=== PATIENT | female | born 1970 | race Caucasian/White ===

== ENCOUNTER → 2017-09-05 | Outpatient (CLI) | payer BC ==
[~2017-09-05] MED LIST: CETI10TA84 PO
[2017-09-05 17:52] LABS: BLOOD UREA NITROGEN 16 mg/dl (7-18); BUN/CREATININE RATIO 18.8 (10-20); CALCIUM 9.5 mg/dl (8.5-10.1); CARBON DIOXIDE 32 mmol/L (21-32); CHLORIDE 103 mmol/L (98-107); CREATININE 0.86 mg/dl (0.60-1.20); GLUCOSE 107 mg/dl (70-99); POTASSIUM 3.9 mmol/L (3.5-5.1); SODIUM 139 mmol/L (136-145)
[2017-09-06 07:40] LABS: ESTIMATED AVERAGE GLUCOSE 105 mg/dl; HA1C FLAG Normal (Normal)
== END | disposition home or self-care (01) ==
LOC: C.LABPVFM 14:29
PROVIDERS: ATTEND Nurse Practitioner
DX: R42 Dizziness and giddiness (principal); I10 Essential (primary) hypertension

== ENCOUNTER → 2018-01-23 | Outpatient (CLI) | payer OTHER ==
--- NOTE | 2018-01-23 13:23 | DIAGNOSTIC IMAGING REPORT ---
R WRIST MIN 3 VIEWS ROUTINE CLINICAL HISTORY: Right wrist pain status post trauma COMPARISON: None. DISCUSSION: No fractures or dislocations are visualized. IMPRESSION: No fractures identified. Electronically signed by: Mina Sexton M.D. 01/23/2018 1:21 PM Dictated Date/Time: 01/23/2018 1:21 PM
== END | disposition home or self-care (01) ==
LOC: C.RADPV 13:08
PROVIDERS: ATTEND Family Medicine
DX: S63.509A Unspecified sprain of unspecified wrist, initial encounter (principal); X58.XXXA Exposure to other specified factors, initial encounter

== ENCOUNTER 2020-02-08 10:23 | Inpatient (IN) ==
[2020-02-08] MEDS ORDERED: MoRPHine SULFATE 4 MG/ML 1 ML CARP\\VIAL IV STA ×2 (11:28→13:31)
[2020-02-08] MEDS ORDERED: ONDANSETRON INJ 2 MG/ML 2 ML VIAL IV STA ×2 (11:28→13:31)
--- NOTE | 2020-02-08 11:35 | Emergency Department Note ---
History of Present Illness General Chief complaint: Abdominal Pain Stated complaint: abd pain, chest pain, gi assessment Time Seen by Provider: 02/08/20 11:16 Source: patient Mode of arrival: ambulatory Limitations: no limitations History of Present Illness Provider complaint: Abdominal pain Onset (ago): week(s) Location: abdomen Radiation: back and other (Chest) Severity: severe Maximum Pain Intensity: 10 Quality: + other (Cramping) Exacerbated By: + eating (30) Associated symptoms: no cough, no fever/chills, no nausea/vomiting and no shortness of breath This is a 49-year-old female who presents abdominal pain. The pain started last week. She had it for 2 days. It went away and then came back 2 days ago. She states that it feels like a cramping pain in the central upper abdomen radiating into her back as well as her chest. It is worse after she eats, particularly turkey. No diarrhea, black or bloody stools, urinary symptoms, shortness of breath, cough or cold symptoms, fever, loss of taste or smell, or known exposure to COVID-19. She rates it a 10 out of 10 in severity. It is worse today even though she did not eat turkey. She also states that she did not take her blood pressure medicines this morning. She denies any leg swelling or pain. Home Medications Home Medications Medication Instructions Recorded Confirmed Type multivitamin 1 tab PO QAM 04/08/19 02/08/20 History cetirizine 10 mg PO QAM 09/11/19 02/08/20 History losartan 50 mg tablet 50 mg PO QAM #30 tab 12/03/19 02/08/20 Rx Allergies Allergy/AdvReac Type Severity Reaction Status Date / Time lisinopril Allergy Mild cough Verified 02/08/20 11:55 Past Med/Surg History Medical History (Updated 02/08/20 @ 15:08 by Vijay Webster MD) Allergic rhinitis (Chronic) Cholecystitis with cholelithiasis (Acute) Choledocholithiasis Hypertension Migraine Surgical History History of bilateral tubal ligation History of section x2 History of dilatation and curettage History of tooth extraction History of wisdom tooth extraction Social History (Updated 05/25/19 @ 07:49 by NEYDA Koenig) Preferred Language: Kazakh Communication Ability: Effective Svp Operations Required: No Beliefs That Will Affect Care: None marital status: Current Living Situation: Spouse current occupational status: previously employed Other Information That Helps Us Care for You: No Feels Safe at Home: Yes Safety Concerns: Feels Safe At This Time Smoking Status: Never smoker Do You Dip or Chew Tobacco: No ; Second Hand Exposure: No ; Tobacco Cessation Education Requested by Patient: No Hx Alcohol Use: No Hx Substance Use: No during the past year weight has: remained stable Dental Care, Regularly: Yes Seatbelt Use: always Sunscreen Use: Yes Review of Systems See HPI for pertinent positives & negatives. and A total of 10 systems reviewed and were otherwise negative Physical Exam Vital Signs Vital Signs - 24 hr 02/08/20 10:34 02/08/20 12:30 02/08/20 13:23 Temperature 36.8 C Temperature Source Oral Pulse Rate 102 H Pulse Rate [Right Finger] 98 H 100 H Pulse Rhythm [Right Finger] Regular Pulse Strength [Right Finger] Normal Respiratory Rate 20 18 18 Respiratory Effort / Characteristics Non-Labored Non-Labored Spontaneous Non-Labored Spontaneous Respiratory Depth Normal Normal Normal Respiratory Pattern Regular Regular Blood Pressure 167/98 H Blood Pressure [Left Arm] 136/84 138/97 Blood Pressure Mean 121 Blood Pressure Mean [Left Arm] 101 110 Blood Pressure Position [Left Arm] Lying Sitting Pulse Oximetry 98 96 97 Oxygen Delivery Method Room Air Room Air Room Air Sepsis Recent Fever Within 48 Hours No Sepsis Action Taken by Nursing No Action Required 02/08/20 13:53 Temperature Temperature Source Pulse Rate Pulse Rate [Right Finger] 99 H Pulse Rhythm [Right Finger] Pulse Strength [Right Finger] Respiratory Rate 18 Respiratory Effort / Characteristics Non-Labored Spontaneous Respiratory Depth Normal Respiratory Pattern Regular Blood Pressure Blood Pressure [Left Arm] 154/87 H Blood Pressure Mean Blood Pressure Mean [Left Arm] 109 Blood Pressure Position [Left Arm] Lying Pulse Oximetry 98 Oxygen Delivery Method Room Air Sepsis Recent Fever Within 48 Hours Sepsis Action Taken by Nursing Constitutional: Vital signs reviewed. Eyes: Pupils are equal round reactive to light. Conjunctiva are noninjected. ENT: Pharynx is clear without erythema or exudate. Mucous membranes are moist. Neck supple without meningeal signs. Respiratory: Clear to auscultation bilaterally. Breath sounds are equal bilaterally. Cardiovascular: Regular rate and rhythm. No rubs or gallops. GI: Soft, nondistended with epigastric and right upper quadrant tenderness. No Rome sign. Bowel sounds are present. Musculoskeletal: No peripheral edema. No lower extremity tenderness. Integumentary: No cyanosis. or jaundice. Neurological: The patient is awake and alert. No focal deficits. Psychiatric: Normal affect. Not anxious appearing. Course Administered Medications Discontinued Medications Morphine Sulfate (Morphine Sulfate) 4 mg IV NOW STA Stop: 02/08/20 11:29 Last Admin: 02/08/20 11:40 Dose: 4 mg Documented by: [id number] Morphine Sulfate (Morphine Sulfate) 4 mg IV NOW STA Stop: 02/08/20 13:32 Last Admin: 02/08/20 13:50 Dose: 4 mg Documented by: [id number] Ondansetron HCl (Zofran) 4 mg IV NOW STA Stop: 02/08/20 11:29 Last Admin: 02/08/20 11:40 Dose: 4 mg Documented by: [id number] Ondansetron HCl (Zofran) 4 mg IV NOW STA Stop: 02/08/20 13:32 Last Admin: 02/08/20 13:50 Dose: 4 mg Documented by: [id number] Medical Decision Making Differential Diagnosis Cholelithiasis, cholecystitis, pancreatitis, peptic ulcer disease, colitis, pneumonia, [place] Medical Records Attestation: I reviewed the patient's medical records. I did perform a limited focused review of portions of the patient's old chart on the electronic medical record. The patient has had no recent pertinent visits to this hospital. Home Medications Current Medication List: was personally reviewed by me Laboratory Data Attestation: I reviewed the patient's lab results. Result diagrams: 02/08/20 11:26 02/08/20 11:26 Lab Results 02/08/20 02/08/20 02/08/20 Range/Units 11:26 11:26 11:26 WBC 13.75 H (4.8-10.8) K/uL RBC 4.71 (4.2-5.4) M/uL Hgb 14.4 (12.0-16.0) g/dL Hct 40.7 (37-47) % MCV 86.4 (80-100) fL MCH 30.6 (25-34) pg MCHC 35.4 (32-36) g/dL RDW Std Deviation 41.2 (36.4-46.3) fL RDW Coeff of Topher 12.8 (11.5-14.5) % Plt Count 221 (130-400) K/uL MPV 10.8 H (7.4-10.4) fL Immature Gran % (Auto) 0.3 % Neut % (Auto) 84.3 % Lymph % (Auto) 10.5 % Cooke % (Auto) 4.7 % Eos % (Auto) 0.1 % Baso % (Auto) 0.1 % Immature Gran # (Auto) 0.04 H (0.00-0.02) K/uL Neut # (Auto) 11.59 H (1.4-6.5) K/uL Lymph # (Auto) 1.44 (1.2-3.4) K/uL Cooke # (Auto) 0.64 H (0.11-0.59) K/uL Eos # (Auto) 0.02 (0-0.5) K/uL Baso # (Auto) 0.02 (0-0.2) K/uL PT 10.7 (9.0-12.0) Seconds INR 1.0 (0.9-1.1) APTT 29.5 (21.0-31.0) Seconds PTT Ratio 1.1 Sodium 137 (136-145) mmol/L Potassium 3.4 L (3.5-5.1) mmol/L Chloride 106 (98-107) mmol/L Carbon Dioxide 23 (21-32) mmol/L Anion Gap 8.0 (3-11) BUN 19 H (7-18) mg/dl Creatinine 0.76 (0.6-1.2) mg/dl Est Cr Clr Drug Dosing 95.1 ml/min Est GFR ( Amer) 105.3 Est GFR (Non-Af Amer) 90.8 BUN/Creatinine Ratio 25.7 H (10-20) Glucose 133 H (70-99) mg/dl Calcium 9.4 (8.5-10.1) mg/dl Total Bilirubin 0.3 (0.2-1) mg/dl AST 10 L (15-37) U/L ALT 27 (12-78) U/L Alkaline Phosphatase 75 (45-117) U/L Troponin I < 0.015 (0-0.045) ng/ml Total Protein 8.4 H (6.4-8.2) gm/dl Albumin 4.4 (3.4-5.0) gm/dl Globulin 4.0 (2.5-4.0) gm/dl Albumin/Globulin Ratio 1.1 (0.9-2) Lipase 104 (73-393) U/L Urine Color Urine Appearance (Clear) Urine pH (4.5-7.5) Ur Specific [place] (1.000-1.030) Urine Protein (Negative) Urine Glucose (UA) (Negative) Urine Ketones (Negative) Urine Blood (Negative) Urine Nitrite (Negative) Urine Bilirubin (Negative) Urine Urobilinogen (Negative) Ur Leukocyte Esterase (Negative) Urine WBC (Auto) (0-5) /hpf Urine RBC (Auto) (0-4) /hpf U Hyaline Cast (Auto) (0-5) /lpf U Epithel Cells (Auto) (0-5) /lpf Urine Bacteria (Auto) (Negative) POC Ur Test (NEG) 02/08/20 02/08/20 Range/Units 11:45 11:50 WBC (4.8-10.8) K/uL RBC (4.2-5.4) M/uL Hgb (12.0-16.0) g/dL Hct (37-47) % MCV (80-100) fL MCH (25-34) pg MCHC (32-36) g/dL RDW Std Deviation (36.4-46.3) fL RDW Coeff of Topher (11.5-14.5) % Plt Count (130-400) K/uL MPV (7.4-10.4) fL Immature Gran % (Auto) % Neut % (Auto) % Lymph % (Auto) % [place] % (Auto) % Eos % (Auto) % Baso % (Auto) % Immature Gran # (Auto) (0.00-0.02) K/uL Neut # (Auto) (1.4-6.5) K/uL Lymph # (Auto) (1.2-3.4) K/uL [place] # (Auto) (0.11-0.59) K/uL Eos # (Auto) (0-0.5) K/uL Baso # (Auto) (0-0.2) K/uL PT (9.0-12.0) Seconds INR (0.9-1.1) APTT (21.0-31.0) Seconds PTT Ratio Sodium (136-145) mmol/L Potassium (3.5-5.1) mmol/L Chloride (98-107) mmol/L Carbon Dioxide (21-32) mmol/L Anion Gap (3-11) BUN (7-18) mg/dl Creatinine (0.6-1.2) mg/dl Est Cr Clr Drug Dosing ml/min Est GFR ( Amer) Est GFR (Non-Af Amer) BUN/Creatinine Ratio (10-20) Glucose (70-99) mg/dl Calcium (8.5-10.1) mg/dl Total Bilirubin (0.2-1) mg/dl AST (15-37) U/L ALT (12-78) U/L Alkaline Phosphatase (45-117) U/L Troponin I (0-0.045) ng/ml Total Protein (6.4-8.2) gm/dl Albumin (3.4-5.0) gm/dl Globulin (2.5-4.0) gm/dl Albumin/Globulin Ratio (0.9-2) Lipase (73-393) U/L Urine Color Yellow Urine Appearance Turbid A (Clear) Urine pH 5.0 (4.5-7.5) Ur Specific [place] 1.032 H (1.000-1.030) Urine Protein Negative (Negative) Urine Glucose (UA) Negative (Negative) Urine Ketones Trace H (Negative) Urine Blood Trace H (Negative) Urine Nitrite Negative (Negative) Urine Bilirubin Negative (Negative) Urine Urobilinogen Negative (Negative) Ur Leukocyte Esterase Negative (Negative) Urine WBC (Auto) 1-5 (0-5) /hpf Urine RBC (Auto) 0-4 (0-4) /hpf U Hyaline Cast (Auto) 1-5 (0-5) /lpf U Epithel Cells (Auto) 20-30 H (0-5) /lpf Urine Bacteria (Auto) Negative (Negative) POC Ur Test NEG (NEG) Imaging Data Radiologist's Impression: US gallbladder CLINICAL HISTORY: 49 years-old Female presenting with ruq pain eval for stones. TECHNIQUE: Real-time grayscale and limited color Doppler ultrasound imaging of the abdomen limited to the right upper quadrant was performed. COMPARISON: Plain radiograph from 09/24/2019. FINDINGS: Pancreas: Visualized portions of the pancreatic head and body normal. Liver: Moderately hyperechogenic parenchyma with partial obscuration of the right hemidiaphragm, likely indicating moderate steatosis. The liver measures 19.2 cm in maximal sagittal dimension. No sonographic evidence of hepatic mass. Main portal vein patent with normal directional flow. Biliary: No intrahepatic biliary ductal dilatation. Common bile duct measures up to 12 mm in diameter. Gallbladder: Gallstones and gallbladder sludge in the significantly distended gallbladder lumen. Gallbladder wall thickening and pericholecystic fluid eviden t. An impacted gallstone is noted at the gallbladder neck measuring 2 cm. Sonographic Rome's sign positive. Right kidney: Normal in appearance without evidence of hydronephrosis. Ascites: None. Other: None. IMPRESSION: 1. Findings highly suspicious for acute calculus cholecystitis. Surgical consultation is warranted. 2. Extrahepatic biliary ductal dilatation raises concern for choledocho lithiasis. 3. Moderate hepatic steatosis. The report will be called/faxed according to standard departmental protocol. ACT 112: Negative or not required by law. Electronically signed by: Dixon Sexton M.D. 02/08/2020 12:28 PM XR chest 1V portable CLINICAL HISTORY: eval for infiltrate COMPARISON STUDY: Chest radiograph September 24, 2019. FINDINGS: Lung volumes are normal. Lungs are clear. There is no pneumothorax or pleural effusion. Cardiac size is normal. Mediastinal contours are normal. There is no evidence for pulmonary edema. IMPRESSION: No acute cardiopulmonary findings. ACT 112: Negative or not required by law. Electronically signed by: Fadi Sales M.D. 02/08/2020 11:52 AM ECG Data Attestation: I personally reviewed and interpreted this ECG as follows: Indication: + abdominal pain Rate (beats per minute): 101 Rhythm: + sinus tachycardia ECG Intervals/blocks: + First degree AV block ECG ST segments: no ST elevation ECG Findings: no PVCs Blood Pressure Blood Pressure Findings: Elevated blood pressure Blood Pressure Disposition: Referred to patients primary care provider CHRISTOFER Narrative I did evaluate the patient as noted above. The patient is presenting with abdominal pain rating into her chest and back. On exam she is tender in the right upper quadrant and epigastric region. She states the pain is worse with eating turkey. She does still have her gallbladder. IV access was established. I did treat her with IV morphine and Zofran. The patient was placed on a continuous monitoring coordinator. I did order and personally review the patient's 12- lead EKG as described above. She has no acute ischemic changes. I did order and personally reviewed the images of the patient's chest x-ray as described above. I did order a urine analysis. I did order and review the patient's blood work as noted in the electronic medical record. Her white blood cell count is elevated but she has unremarkable LFTs and lipase. I did order an ultrasound of the right upper quadrant. I did review the images myself as well as the radiology report as described above. She has signs of acute cholecystitis. Bile duct is dilated as well. I did reassess the patient. She is still having significant pain and she was given additional IV morphine and Zofran. I did discuss the test results with her. I did discuss the case with the surgeon on-call Dr. Malone who did hospitalize the patient. Impression & Plan Cholecystitis with cholelithiasis Discharge Plan Visit Data Chief Complaint: Abdominal Pain Stated Complaint: abd pain, chest pain, gi assessment ED Provider: Vijay Webster Discharge Problem: Cholecystitis with cholelithiasis Patient Disposition: Being Evaluated by Surgeon Condition: Good Forms Stand Alone Forms: [facility] [employer] Prescriptions Prescriptions: No Action losartan 50 mg tablet 50 mg PO QAM Qty: 30 RF: 5 multivitamin [Multiple Vitamins] tablet 1 tab PO QAM RF: 0 cetirizine 10 mg tablet 10 mg PO QAM RF: 0 Referrals Referrals: Lisa Rankin CRNP [Primary Care Provider] - Discharge Problem: Cholecystitis with cholelithiasis Qualifiers: Cholelithiasis location: gallbladder Cholecystitis acuity: acute Biliary obstruction: without biliary obstruction Qualified Code(s): K80.00 - Calculus of gallbladder with acute cholecystitis without obstruction
[2020-02-08 11:36] LABS: Basophils # (auto) 0.02 K/uL (0-0.2); Basophils % (auto) 0.1 %; Eosinophils # (auto) 0.02 K/uL (0-0.5); Eosinophils % (auto) 0.1 %; Hematocrit (blood only) 40.7 % (37-47); Hemoglobin 14.4 g/dL (12.0-16.0); Immature Granulocytes # (auto) 0.04 K/uL (0.00-0.02); Immature Granulocytes % (auto) 0.3 %; Lymphocytes # (auto) 1.44 K/uL (1.2-3.4); Lymphocytes % (auto) 10.5 %; Mean Corpuscular Hemoglobin 30.6 pg (25-34); Mean Corpuscular Hgb Conc 35.4 g/dL (32-36); Mean Corpuscular Volume 86.4 fL (80-100); Mean Platelet Volume 10.8 fL (7.4-10.4); Monocytes # (auto) 0.64 K/uL (0.11-0.59); Monocytes % (auto) 4.7 %; Neutrophils # (auto) 11.59 K/uL (1.4-6.5); Neutrophils % (auto) 84.3 %; Platelet Count 221 K/uL (130-400); RDW Coefficient of Variation 12.8 % (11.5-14.5); RDW Standard Deviation 41.2 fL (36.4-46.3); Red Blood Count 4.71 M/uL (4.2-5.4); White Blood Count 13.75 K/uL (4.8-10.8)
[2020-02-08 11:52] LABS: Alanine Aminotransferase 27 U/L (12-78); Albumin Level 4.4 gm/dl (3.4-5.0); Aspartate Aminotransferase 10 U/L (15-37); BUN Creatinine Ratio 25.7 (10-20); Blood Urea Nitrogen 19 mg/dl (7-18); Calcium 9.4 mg/dl (8.5-10.1); Carbon Dioxide 23 mmol/L (21-32); Chloride 106 mmol/L (98-107); Creatinine Clr Calc Pharmacy 95.1 ml/min; Est GFR (African American) 105.3; Est GFR (Non-African American) 90.8; Glucose 133 mg/dl (70-99); Lipase 104 U/L (73-393); Potassium 3.4 mmol/L (3.5-5.1); Sodium 137 mmol/L (136-145)
--- NOTE | 2020-02-08 11:53 | XRay Report ---
XR chest 1V portable CLINICAL HISTORY: eval for infiltrate COMPARISON STUDY: Chest radiograph September 24, 2019. FINDINGS: Lung volumes are normal. Lungs are clear. There is no pneumothorax or pleural effusion. Car diac size is normal. Mediastinal contours are normal. There is no evidence for pulmonary edema. IMPRESSION: No acute cardiopulmonary findings. ACT 112: Negative or not required by law. Electronically signed by: Fadi Sales M.D. 02/08/2020 11:52 AM
[2020-02-08 11:57] LABS: Albumin Globulin Ratio 1.1 (0.9-2); Alkaline Phosphatase 75 U/L (45-117); Bilirubin,Total 0.3 mg/dl (0.2-1); Total Protein 8.4 gm/dl (6.4-8.2); Troponin I < 0.015 ng/ml (0-0.045)
[2020-02-08 12:04] LABS: Appearance Urine Turbid (Clear); Bacteria Urine Automated Negative (Negative); Bilirubin Urine Negative (Negative); Blood Urine Trace (Negative); Color Urine Yellow; Epithelial Cell Urine Auto 20-30 /lpf (0-5); Glucose Urine UA Negative (Negative); Ketones Urine Trace (Negative); Leukocyte Esterase Urine Negative (Negative); Nitrite Urine Negative (Negative); Protein Urine Negative (Negative); RBC Urine Automated 0-4 /hpf (0-4); Specific Gravity Urine 1.032 (1.000-1.030); Urobilinogen Urine Negative (Negative)
--- NOTE | 2020-02-08 12:29 | Ultrasound Report ---
US gallbladder CLINICAL HISTORY: 49 years-old Female presenting with ruq pain eval for stones. TECHNIQUE: Real-time grayscale and limited color Doppler ultrasound imaging of the abdomen limited to the right upper quadrant was performed. COMPARISON: Plain radiograph from 09/24/2019. FINDINGS: Pancreas: Visualized portions of the pancreatic head and body normal. Liver: Moderately hyperechogenic parenchyma with partial obscuration of the right hemidiaphragm, like ly indicating moderate steatosis. The liver measures 19.2 cm in maximal sagittal dimension. No sonogr aphic evidence of hepatic mass. Main portal vein patent with normal directional flow. Biliary: No intrahepatic biliary ductal dilatation. Common bile duct measures up to 12 mm in diameter . Gallbladder: Gallstones and gallbladder sludge in the significantly distended gallbladder lumen. Gall bladder wall thickening and pericholecystic fluid evident. An impacted gallstone is noted at the gall bladder neck measuring 2 cm. Sonographic Rome's sign positive. Right kidney: Normal in appearance without evidence of hydronephrosis. Ascites: None. Other: None. IMPRESSION: 1. Findings highly suspicious for acute calculus cholecystitis. Surgical consultation is warranted. 2. Extrahepatic biliary ductal dilatation raises concern for choledocholithiasis. 3. Moderate hepatic steatosis. The report will be called/faxed according to standard departmental protocol. ACT 112: Negative or not required by law. Electronically signed by: Dixon Sexton M.D. 02/08/2020 12:28 PM
[2020-02-08 12:55] LABS: Partial Thromboplastin Ratio 1.1; Partial Thromboplastin Time 29.5 Seconds (21.0-31.0); Prothrombin Time 10.7 Seconds (9.0-12.0)
--- NOTE | 2020-02-08 13:29 | History & Physical Report ---
Date of Service February 08, 2020 Assessment & Plan (1) Hypertension: con't home meds Present on Admission?: Yes (2) Cholecystitis with cholelithiasis: IVF IV abx to OR for lap lnyn possible IOC in AM Present on Admission?: Yes (3) Choledocholithiasis: Possible IOC; GI consult and ERCP if CBD stone. History of Present Illness Primary Care Provider: NEYDA Koenig This is a 49-year-old female who presented to ED with abdominal pain. She had the pain last week but it resolved. This pain started 2 days ago that she describes as crampy in the right upper abdomen radiating into her back as well as her chest. It is worse after she eats but no diarrhea, black or bloody stools, urinary symptoms, shortness of breath, cough or cold symptoms, fever, loss of taste or smell, or known exposure to COVID-19. She hasa some nausea but no vomiting. She also states that she did not take her blood pressure medicines this morning. She had a light breakfast this AM. Allergies Allergy/AdvReac Type Severity Reaction Status Date / Time lisinopril Allergy Mild cough Verified 02/08/20 11:55 Home Medications Home Medications Medication Instructions Recorded Confirmed Type multivitamin 1 tab PO QAM 04/08/19 02/08/20 History cetirizine 10 mg PO QAM 09/11/19 02/08/20 History losartan 50 mg tablet 50 mg PO QAM #30 tab 12/03/19 02/08/20 Rx Past Med/Surg History Social History (Updated 05/25/19 @ 07:49 by NEYDA Koenig) Preferred Language: Bengali Communication Ability: Effective Fire Systems Inspector Required: No Beliefs That Will Affect Care: None marital status: Current Living Situation: Spouse current occupational status: previously employed Feels Safe at Home: Yes Smoking Status: Never smoker Second Hand Exposure: No ; Hx Alcohol Use: No Hx Substance Use: No during the past year weight has: remained stable Dental Care, Regularly: Yes Seatbelt Use: always Sunscreen Use: Yes Review of Systems Constitutional: + fatigue and + anorexia; no fever and no chills Eyes: no problem reported Ear, Nose, Mouth, Throat: no problem reported Respiratory: no cough, no chest congestion and no dyspnea Cardiovascular: + chest pain; no chest pain with activity Gastrointestinal: + abdominal pain, + nausea and + cramping; no vomiting and no diarrhea/loose stools Genitourinary: no dysuria Musculoskeletal: + back pain; no neck pain and no joint pain Integumentary: no rash Neurologic: no problem reported Psychiatric: no problem reported Endocrine: + fatigue; no polydipsia and no polyphagia Hematologic / Lymphatic: no easy bleeding Allergy / Immunological: no problem reported Physical Exam Constitutional: well developed and well nourished; no acute distress Eyes: PERRL, conjunctivae normal, anicteric sclerae Neck: trachea midline Respiratory: normal respiratory effort, lungs clear to auscultation Cardiovascular: RRR, no murmur, no edema Gastrointestinal (Abdomen): Inspection/Auscultation: abdomen normal to inspection and normal bowel sounds; abdomen not distended Percussion/Palpation: + abdomen tender and abdomen soft; no guarding and abdomen not rigid Musculoskeletal: Head/Neck/Chest: normocephalic and head atraumatic Skin: no rashes, warm and dry Psychiatric: Orientation: alert and oriented x 3 Lymphatic: no lymphadenopathy Results & Data Results & Data ([facility]) Vital Signs (Past 12 Hours) Vital Signs Temp Pulse Pulse Resp BP BP Pulse Ox 02/08/20 12:30 98 H 18 136/84 96 02/08/20 10:34 36.8 C 102 H 20 167/98 H 98 Diagnostic Findings US gallbladder CLINICAL HISTORY: 49 years-old Female presenting with ruq pain eval for stones. TECHNIQUE: Real-time grayscale and limited color Doppler ultrasound imaging of the abdomen limited to the right upper quadrant was performed. COMPARISON: Plain radiograph from 09/24/2019. FINDINGS: Pancreas: Visualized portions of the pancreatic head and body normal. Liver: Moderately hyperechogenic parenchyma with partial obscuration of the right hemidiaphragm, likely indicating moderate steatosis. The liver measures 19.2 cm in maximal sagittal dimension. No sonographic evidence of hepatic mass. Main portal vein patent with normal directional flow. Biliary: No intrahepatic biliary ductal dilatation. Common bile duct measures up to 12 mm in diameter. Gallbladder: Gallstones and gallbladder sludge in the significantly distended gallbladder lumen. Gallbladder wall thickening and pericholecystic fluid evident. An impacted gallstone is noted at the gallbladder neck measuring 2 cm. Sonographic Rome's sign positive. Right kidney: Normal in appearance without evidence of hydronephrosis. Ascites: None. Other: None. IMPRESSION: 1. Findings highly suspicious for acute calculus cholecystitis. Surgical consultation is warranted. 2. Extrahepatic biliary ductal dilatation raises concern for choledocholithiasis. 3. Moderate hepatic steatosis. Code Status & VTE Plan Code Status Full Code VTE Prophylaxis Plan VTE Prophylaxis will be ordered: Yes
[2020-02-08] MEDS ORDERED: PIPERACILLIN/TAZOBACTAM 3.375 GM in DEXTROSE 5% 100 ML IV SCH (15:38)
[2020-02-08] MEDS ORDERED: ACETAMINOPHEN 325 MG TAB PO PRN (15:38)
[2020-02-08] MEDS ORDERED: MoRPHine SULFATE 2 MG/ML CARP IV PRN (15:38)
[2020-02-08] MEDS ORDERED: PIPERACILL/TAZOBAC CONSULT ACTIVE PRN (15:38)
[2020-02-08] MEDS ORDERED: OXYCODONE/ACETAMINOPHEN 5mg/325mg TAB PO PRN (15:38)
[2020-02-08] MEDS ORDERED: MoRPHine SULFATE 4 MG/ML 1 ML CARP\\VIAL IV PRN (15:38)
[2020-02-08] MEDS ORDERED: MoRPHine SULFATE 10 MG/ML CARP/VIAL IV PRN (15:38)
[2020-02-08] MEDS ORDERED: PIPERACILLIN/TAZOBACTAM 4.5 GM in DEXTROSE 5% 100 ML IV ONE (16:00)
--- NOTE | 2020-02-08 16:14 | Electrocardiogram Report ---
Test Reason : Blood Pressure : / mmHG Vent. Rate : 101 BPM Atrial Rate : 101 BPM P-R Int : 230 ms QRS Dur : 084 ms QT Int : 352 ms P-R-T Axes : 047 -26 047 degrees QTc Int : 456 ms Sinus tachycardia with 1st degree A-V block Abnormal ECG When compared with ECG of 29-DEC-2015 01:45, No significant change was found Confirmed by Cristian Brantley ([id number]) on 02/08/2020 4:14:18 PM Referred By: REFERRED SELF Confirmed By:Cristian Brantley
[2020-02-08] MEDS: LACTATED RINGER'S 1,000 ML IV SCH (16:18)
[2020-02-08] MEDS: OXYCODONE/ACETAMINOPHEN 5mg/325mg TAB PO PRN (16:43)
[2020-02-08] MEDS ORDERED: PROMETHAZINE HCL 12.5 MG in SODIUM CHLORIDE 0.9% 50 ML IV PRN (18:56)
[2020-02-08] MEDS: FAMOTIDINE 20 MG in SYRINGE 3 ML IV SCH (20:36)
[2020-02-08] MEDS: ONDANSETRON INJ 2 MG/ML 2 ML VIAL IV PRN (20:57)
[2020-02-08] MEDS: PIPERACILLIN/TAZOBACTAM 4.5 GM in DEXTROSE 5% 100 ML IV SCH (22:13)
[2020-02-09] MEDS: LACTATED RINGER'S 1,000 ML IV SCH ×3 (02:36→21:12)
[2020-02-09] MEDS: PIPERACILLIN/TAZOBACTAM 4.5 GM in DEXTROSE 5% 100 ML IV SCH ×3 (05:48→21:55)
[2020-02-09] MEDS ORDERED: CEFAZOLIN 1000MG 1,000 MG/7.5 ML SYR IV SCH (06:00)
[2020-02-09] MEDS ORDERED: MIDAZOLAM HCL 1 MG/ML 2ML VIAL ONE (07:00)
[2020-02-09] MEDS ORDERED: GLYCOPYRROLATE 0.2 MG/ML VIAL ONE (07:00)
[2020-02-09] MEDS ORDERED: DEXAMETHASONE SOD INJ 4 MG/ML VIAL ONE (07:00)
[2020-02-09] MEDS ORDERED: NEOSTIGMINE METHYLSULFATE 5 MG/5 ML SYR ONE (07:00)
[2020-02-09] MEDS ORDERED: PROPOFOL IV EMULSION 10 MG/ML 20 ML VIAL IV ONE (07:00)
[2020-02-09] MEDS ORDERED: ONDANSETRON INJ 2 MG/ML 2 ML VIAL ONE (07:00)
[2020-02-09] MEDS ORDERED: fentaNYL citrate 100 MCG/2 ML VIAL ONE (07:00)
[2020-02-09] MEDS ORDERED: LIDOCAINE 2% 20 MG/ML 5 ML SYR IV ONE (07:00)
[2020-02-09] MEDS ORDERED: ROCURONIUM BROMID 50MG/5ML SYR ONE (07:10)
--- NOTE | 2020-02-09 07:19 | Surgery Progress Note ---
Date of Service February 09, 2020 Assessment & Plan (1) Choledocholithiasis: plan IOC today (2) Cholecystitis with cholelithiasis: lap lynn today Subjective pain improved Physical Exam Respiratory: normal respiratory effort, lungs clear to auscultation Cardiovascular: RRR, no murmur, no edema Gastrointestinal (Abdomen): Inspection/Auscultation: abdomen normal to inspection and normal bowel sounds Percussion/Palpation: + abdomen tender Skin: no rashes, warm and dry no jaundice Results & Data Vital Signs (Past 12 Hours) Vital Signs Temp Pulse Resp BP Pulse Ox 02/08/20 23:16 37.0 C 90 16 137/85 99 (1) Cholecystitis with cholelithiasis Biliary obstruction: without biliary obstruction Cholecystitis acuity: acute Cholelithiasis location: gallbladder Qualified Code(s): K80.00 - Calculus of gallbladder with acute cholecystitis without obstruction
[2020-02-09] MEDS ORDERED: CONRAY 60% 50 ML VIAL ONE (07:29)
[2020-02-09] MEDS ORDERED: BUPIVACAINE/EPINEPHRINE 0.5% MPF 1:200,000 10 ML VIAL ONE (07:30)
[2020-02-09] MEDS: FAMOTIDINE 20 MG in SYRINGE 3 ML IV SCH ×2 (07:54→21:13)
[2020-02-09] MEDS: LOSARTAN POTASSIUM 50 MG TAB PO SCH (07:54)
--- NOTE | 2020-02-09 07:55 | Anesthesiology Consultation ---
Date of Service February 09, 2020 Assessment & Plan (1) Encounter for pre-operative examination: Chart Review Chart Review: Acceptable Risk for Surgery History Surgery Operation Date: 02/09/20 07:30 Proposed Procedures p Laparoscopic Cholecystectomy possible Cholangiogram - Christiano Malone MD Height/Weight Height: 5 ft 2 in Weight: 94.8 kg Allergies Allergy/AdvReac Type Severity Reaction Status Date / Time lisinopril Allergy Mild cough Verified 02/08/20 11:55 Medications Home Medications Medication Instructions Recorded Confirmed Last Taken multivitamin 1 tab PO QAM 04/08/19 02/08/20 02/08/20 cetirizine 10 mg PO QAM 09/11/19 02/08/20 02/08/20 losartan 50 mg tablet 50 mg PO QAM #30 tab 12/03/19 02/08/20 02/08/20 Active Medications Generic Name Dose Route Start Last Admin Trade Name Freq PRN Reason Stop Dose Admin Lactated Ringer's 1,000 mls @ 100 mls/hr 02/08/20 15:38 02/09/20 02:36 Lr IV 03/09/20 15:37 100 mls/hr .Q10H CARMEN Administration Famotidine 20 mg/ Syringe 5 mls @ 2.5 mls/min 02/08/20 21:00 02/09/20 07:54 IV 03/09/20 20:59 Not Given Q12H CARMEN Piperacillin Sod/Tazobactam 120 mls @ 30 mls/hr 02/08/20 22:00 02/09/20 05:48 Sod 4.5 gm/ Dextrose IV 02/18/20 21:59 30 mls/hr Q8H CARMEN Administration Protocol Promethazine HCl 12.5 mg/ 50.5 mls @ 204 mls/hr 02/08/20 18:56 02/08/20 23:14 Sodium Chloride IV 03/09/20 18:55 Infused Q4 PRN Infusion Nausea And Vomiting Losartan Potassium 50 mg 02/09/20 09:00 02/09/20 07:54 Cozaar PO 03/10/20 08:59 Not Given QAM CARMEN Morphine Sulfate 3 mg 02/08/20 15:38 02/09/20 02:44 Morphine Sulfate IV 02/22/20 15:37 3 mg Q3H PRN Administration MODERATE Pain (Scale 4,5,6) Morphine Sulfate 5 mg 02/08/20 15:38 02/08/20 18:24 Morphine Sulfate IV 02/22/20 15:37 5 mg Q3H PRN Administration SEVERE Pain (Scale 7,8,9,10) Ondansetron HCl 4 mg 02/08/20 15:38 02/08/20 20:57 Zofran IV 03/09/20 15:37 4 mg Q6H PRN Administration Nausea Oxycodone/Acetaminophen 2 tab 02/08/20 15:38 02/08/20 16:43 Percocet 5mg/325mg PO 02/22/20 15:37 2 tab Q4H PRN Administration SEVERE Pain (Scale 7,8,9,10) NPO Date Last Intake of Fluids: 02/08/20 Time Last Intake of Fluids: 22:00 Date Last Intake of Solids: 02/08/20 Time Last Intake of Solids: 19:30 Past Medical History Medical History Allergic rhinitis (Chronic) Cholecystitis with cholelithiasis (Acute) Choledocholithiasis Hypertension Migraine Past Family History Family History Father Family history of diabetes mellitus Mother Family history of diabetes mellitus Grandmother (Maternal) Family history of cancer of larynx Other Coronary heart disease No family history of adverse response to anesthesia Past Surgical History Surgical History History of bilateral tubal ligation History of section x2 History of dilatation and curettage History of tooth extraction History of wisdom tooth extraction Social History Smoking Status: Never smoker Do You Dip or Chew Tobacco: No Hx Alcohol Use: No Hx Substance Use: No substance use type: does not use Physical Exam Vital Signs Last Vital Signs Temp 37.0 C 02/08/20 23:16 Pulse 90 02/08/20 23:16 Resp 16 02/08/20 23:16 BP 137/85 02/08/20 23:16 Pulse Ox 99 02/08/20 23:16 Testing Laboratory Results 02/08/20 11:26 02/08/20 11:26 PT 10.7 Seconds (9.0-12.0) 02/08/20 11:26 INR 1.0 (0.9-1.1) 02/08/20 11:26 APTT 29.5 Seconds (21.0-31.0) 02/08/20 11:26 Urine Color Yellow 02/08/20 11:45 Urine Appearance Turbid (Clear) A 02/08/20 11:45 Urine pH 5.0 (4.5-7.5) 02/08/20 11:45 Ur Specific [place] 1.032 (1.000-1.030) H 02/08/20 11:45 Urine Protein Negative (Negative) 02/08/20 11:45 Urine Glucose (UA) Negative (Negative) 02/08/20 11:45 Urine Ketones Trace (Negative) H 02/08/20 11:45 Urine Nitrite Negative (Negative) 02/08/20 11:45 Ur Leukocyte Esterase Negative (Negative) 02/08/20 11:45 Urine WBC (Auto) 1-5 /hpf (0-5) 02/08/20 11:45 Urine RBC (Auto) 0-4 /hpf (0-4) 02/08/20 11:45 U Hyaline Cast (Auto) 1-5 /lpf (0-5) 02/08/20 11:45 U Epithel Cells (Auto) 20-30 /lpf (0-5) H 02/08/20 11:45 Urine Bacteria (Auto) Negative (Negative) 02/08/20 11:45 02/08/20 11:50 POC Ur Test NEG Electrocardiogram Date: 02/08/20 Findings: + ST @ (101 first degree AV block) Chest X-Ray Date: 02/08/20 Findings: + NAD
[2020-02-09] MEDS ORDERED: MoRPHine SULFATE PF 1 MG/ML 10 ML AMP/VIAL ONE (08:48)
[2020-02-09] MEDS ORDERED: KETOROLAC 30 MG/ML VIAL ONE (09:51)
--- NOTE | 2020-02-09 09:55 | Post Operative Brief Note ---
Immediate Post Op Note v1 Date of Surgery February 09, 2020 Pre & Post Diagnosis Operation Date: 02/09/20 07:30 Pre-Op Diagnosis: ACUTE CHOLECYSTITIS Post-Op Diagnosis: ACUTE CHOLECYSTITIS I identified the patient and participated in the time-out.: Yes Procedure Operation Date: 02/09/20 07:30 Actual Procedures p Laparoscopic Cholecystectomy - Christiano Malone MD Surgeon Christiano Malone MD [employer] Aide none Estimated Blood Loss 75 Findings Consistent with Post-Op Diagnosis Drains Garret Drain and Felix-Herbert Drain
[2020-02-09] MEDS ORDERED: fentaNYL citrate 100 MCG/2 ML VIAL IV PRN (10:22)
[2020-02-09] MEDS ORDERED: ATROPINE SULFATE 0.1 MG/ML 10ML SYR IV PRN (10:22)
[2020-02-09] MEDS ORDERED: ONDANSETRON INJ 2 MG/ML 2 ML VIAL IV PRN (10:22)
[2020-02-09] MEDS ORDERED: ePHEDrine sulfate 50 MG/ML AMP IV PRN (10:22)
--- NOTE | 2020-02-09 10:49 | Anesthesiology Progress Note ---
Date of Service February 09, 2020 Anesthesia Post Procedure Vital Signs Vital Signs: Temp Pulse Pulse Resp BP BP Pulse Ox 02/09/20 10:45 37.0 C 75 22 124/84 98 02/09/20 10:35 76 19 120/82 100 02/09/20 10:28 36.4 C L 75 20 125/86 100 02/08/20 23:16 37.0 C 90 16 137/85 99 02/08/20 15:35 36.7 C 95 H 20 126/85 97 02/08/20 15:05 89 18 131/89 98 02/08/20 13:53 99 H 18 154/87 H 98 02/08/20 13:23 100 H 18 138/97 97 02/08/20 12:30 98 H 18 136/84 96 Pain Intensity Abdomen: Pain Intensity: 8 Transfer of Care Handoff Completed per policy Notes Mental Status: alert / awake / arousable Patient Amnestic to Procedure: Yes Nausea / Vomiting: adequately controlled Pain: adequately controlled Airway Patency, RR, SpO2: stable & adequate BP & HR: stable & adequate Hydration State: stable & adequate Anesthetic Complications: no major complications apparent
--- NOTE | 2020-02-09 11:13 | Operative Report (OR) ---
DATE OF OPERATION: 02/09/2020 PREOPERATIVE DIAGNOSIS: Acute cholecystitis. POSTOPERATIVE DIAGNOSIS: Acute cholecystitis. PROCEDURE PERFORMED: Laparoscopic cholecystectomy. SURGEON: Christiano Malone MD. CENTRAL STERILE TECH: None. ANESTHESIA: General endotracheal with 0.5% Marcaine with epinephrine local. ESTIMATED BLOOD LOSS: 75 mL. SPECIMENS: Gallbladder sent to pathology with multiple stones. DRAINS: A Garret drain left in the right upper quadrant. INDICATION FOR PROCEDURE: This is a 49-year-old female who was admitted yesterday with acute cholecystitis with a slightly elevated white count and inflammatory changes consistent with acute cholecystitis by ultrasound. She was begun on IV fluids, IV antibiotics and will be taken to the OR for laparoscopic cholecystectomy. We will attempt to do a cholangiogram secondary to a dilated common bile duct, although her LFTs are normal and she has no history of jaundice or any other issues. We talked in detail about the risks of common duct injury, retained common bile duct stone, open procedure, postop bile leak, bleeding requiring transfusion and wound problems. She understands this and wishes to proceed. DESCRIPTION OF PROCEDURE: The patient was taken to the OR and underwent excellent general endotracheal anesthesia under the new COVID rules. Once the room is cleared, we came in and did a timeout and identified the patient. She was prepped and draped in normal sterile fashion. A transverse supraumbilical incision was made. Dissection was taken down to identify anterior fascia. Two Vicryls were placed on either side of the midline of fascia. The fascia was incised sharply. A blunt Loreta was used to enter the peritoneal cavity through the peritoneum. [place] trocar was then inserted. Good pneumoperitoneum was achieved to 15 mmHg pressure. An 11 subxiphoid, two 5 lateral ports were placed in normal fashion. The patient was placed in head up and rolled to the left. Her gallbladder was identified, it was intrahepatic. It was incredibly inflamed, but not gangrenous. The gallbladder was aspirated, which facilitated grasping the fundus of the gallbladder. This was retracted superiorly. The neck was then identified and this was retracted laterally. Using sharp and blunt dissection, the cystic duct and cystic artery were identified. Interestingly, the right hepatic artery was abnormal and up into the space near the gallbladder with a short cystic artery, which was identified and skeletonized. Two clips were placed proximally on this and one distally and the cystic artery was transected. The right hepatic artery was then pushed away from the rest of the dissection. Medial and lateral window was created between the gallbladder and gallbladder fossa showing the cystic duct to be incredibly inflamed and also somewhat friable; therefore, it was elected not to proceed with a cholangiogram. Three clips were placed distally on the cystic duct, one proximally and the cystic duct was transected. Electrocautery hook was then used to remove the gallbladder off the gallbladder fossa. This was very difficult secondary to the inflammatory dense changes, but the gallbladder was removed, although a few defects were made and some spillage of some stones. Gallbladder and as many stones as could be grasped were placed in the Endobag and then sent for pathologic evaluation. Another Endobag was placed and 4-5 more stones were retrieved. No other stones could be seen. The abdomen was irrigated out and suctioned. There was about 75 mL of blood loss. Some Surgicel was placed on the raw areas of the gallbladder. Once this was done, a Garret drain was placed in the gallbladder fossa. The ports were removed. The drain was sewn in with a nylon suture. The fascia was closed with 0 Vicryls and the skin was closed with china. She tolerated the procedure well with no complications, sent to postop recovery area for a period of observation and will be discharged up to her room once she meets criteria. She will need to be kept on a few days of IV antibiotics and drain management. I attest to the content of the Intraoperative Record and any orders documented therein. Any exception s are noted below.
[2020-02-09] MEDS: OXYCODONE/ACETAMINOPHEN 5mg/325mg TAB PO PRN (21:18)
[2020-02-10] MEDS: PIPERACILLIN/TAZOBACTAM 4.5 GM in DEXTROSE 5% 100 ML IV SCH ×3 (06:16→21:31)
[2020-02-10] MEDS: LACTATED RINGER'S 1,000 ML IV SCH ×2 (06:28→19:57)
[2020-02-10 06:52] LABS: Basophils # (auto) 0.02 K/uL (0-0.2); Basophils % (auto) 0.2 %; Eosinophils # (auto) 0.05 K/uL (0-0.5); Eosinophils % (auto) 0.4 %; Hemoglobin 12.3 g/dL (12.0-16.0); Immature Granulocytes # (auto) 0.03 K/uL (0.00-0.02); Immature Granulocytes % (auto) 0.2 %; Lymphocytes # (auto) 2.85 K/uL (1.2-3.4); Lymphocytes % (auto) 22.4 %; Mean Corpuscular Hemoglobin 29.8 pg (25-34); Mean Corpuscular Hgb Conc 33.2 g/dL (32-36); Mean Corpuscular Volume 89.6 fL (80-100); Mean Platelet Volume 11.1 fL (7.4-10.4); Monocytes % (auto) 7.1 %; Neutrophils # (auto) 8.89 K/uL (1.4-6.5); Neutrophils % (auto) 69.7 %; Platelet Count 201 K/uL (130-400); RDW Coefficient of Variation 13.8 % (11.5-14.5); RDW Standard Deviation 45.2 fL (36.4-46.3); Red Blood Count 4.13 M/uL (4.2-5.4); White Blood Count 12.74 K/uL (4.8-10.8)
[2020-02-10 07:24] LABS: BUN Creatinine Ratio 16.7 (10-20); Calcium 8.7 mg/dl (8.5-10.1); Creatinine Clr Calc Pharmacy 91.6 ml/min; Potassium 3.5 mmol/L (3.5-5.1)
[2020-02-10 07:27] LABS: Albumin Globulin Ratio 0.7 (0.9-2); Bilirubin,Total 0.4 mg/dl (0.2-1); Globulin 4.1 gm/dl (2.5-4.0); Total Protein 7.1 gm/dl (6.4-8.2)
[2020-02-10] MEDS: MULTIVITAMIN TAB PO SCH (08:33)
[2020-02-10] MEDS: FAMOTIDINE 20 MG in SYRINGE 3 ML IV SCH (08:33)
[2020-02-10] MEDS: LOSARTAN POTASSIUM 50 MG TAB PO SCH (08:33)
[2020-02-10] MEDS: CETIRIZINE HCL 10 MG TABLET PO SCH (08:33)
[2020-02-10] MEDS: OXYCODONE/ACETAMINOPHEN 5mg/325mg TAB PO PRN (08:39)
[2020-02-10] MEDS: ONDANSETRON INJ 2 MG/ML 2 ML VIAL IV PRN (09:59)
--- NOTE | 2020-02-10 10:34 | Surgery Progress Note ---
Date of Service February 10, 2020 Assessment & Plan (1) Cholecystitis with cholelithiasis: con't IV abx doing well Present on Admission?: Yes (2) Choledocholithiasis: unlikely but recheck labs in AM if not elevated likely home in AM Subjective POD#1 lap lynn with acute gallbladder con't IV zosyn con't drain monitor LFTs; TB and alk phos normal therefore unlikely CBD stone Review of Systems Constitutional: no fever and no chills Respiratory: no dyspnea Cardiovascular: no chest pain Gastrointestinal: + abdominal pain; no nausea and no vomiting Genitourinary: no dysuria Physical Exam Constitutional: well developed and well nourished; no acute distress Neck: trachea midline Respiratory: normal respiratory effort, lungs clear to auscultation Cardiovascular: RRR, no murmur, no edema Gastrointestinal (Abdomen): Inspection/Auscultation: abdomen normal to inspection and normal bowel sounds; abdomen not distended Percussion/Palpation: abdomen nontender drain with serosanguinous drainage Musculoskeletal: Head/Neck/Chest: normocephalic and head atraumatic Skin: no rashes, warm and dry Results & Data Vital Signs (Past 12 Hours) Vital Signs Temp Pulse Resp BP Pulse Ox 02/10/20 07:13 36.8 C 77 18 103/69 90 02/10/20 03:58 36.8 C 72 16 99/62 L 94 02/09/20 23:06 37 C 75 18 103/67 93 (1) Cholecystitis with cholelithiasis Biliary obstruction: without biliary obstruction Cholecystitis acuity: acute Cholelithiasis location: gallbladder Qualified Code(s): K80.00 - Calculus of gallbladder with acute cholecystitis without obstruction
[2020-02-10] MEDS: IBUPROFEN 600 MG TAB PO PRN (21:31)
[2020-02-10] MEDS: FAMOTIDINE 20 MG TAB PO SCH (21:31)
[2020-02-11] MEDS: PIPERACILLIN/TAZOBACTAM 4.5 GM in DEXTROSE 5% 100 ML IV SCH (05:09)
[2020-02-11 07:22] LABS: Albumin Level 2.4 gm/dl (3.4-5.0); BUN Creatinine Ratio 18.4 (10-20); Calcium 8.3 mg/dl (8.5-10.1); Creatinine Clr Calc Pharmacy 100.6 ml/min; Est GFR (African American) 114.3; Est GFR (Non-African American) 98.6; Potassium 3.4 mmol/L (3.5-5.1)
[2020-02-11 07:25] LABS: Albumin Globulin Ratio 0.7 (0.9-2); Bilirubin,Total 0.3 mg/dl (0.2-1); Globulin 3.6 gm/dl (2.5-4.0)
[2020-02-11 07:30] VITALS: BP 118/78; PULSE 73; TEMP 98.4; O2SAT 92
[2020-02-11] MEDS: MULTIVITAMIN TAB PO SCH (08:17)
[2020-02-11] MEDS: FAMOTIDINE 20 MG TAB PO SCH (08:17)
[2020-02-11] MEDS: LOSARTAN POTASSIUM 50 MG TAB PO SCH (08:17)
[2020-02-11] MEDS: CETIRIZINE HCL 10 MG TABLET PO SCH (08:17)
[2020-02-11] MEDS: IBUPROFEN 600 MG TAB PO PRN (10:16)
--- NOTE | 2020-02-11 12:13 | Surgery Progress Note ---
Date of Service POD 2 S /P laparoscopic cholecystectomy. doing fine, no nausea, no vomiting, BEN 80 ml/day February 11, 2020 Assessment & Plan (1) Cholecystitis with cholelithiasis: POD 2 S/P lap lynn doing fine, pt wants to go home today, D/C home with BEN drainage, the post-op care instruction was given, F/U 1 week, Subjective POD#1 lap lynn with acute gallbladder con't IV zosyn con't drain monitor LFTs; TB and alk phos normal therefore unlikely CBD stone Review of Systems Gastrointestinal: + abdominal pain; no nausea and no vomiting Musculoskeletal: + back pain; no neck pain and no joint pain Endocrine: + fatigue; no polydipsia and no polyphagia Physical Exam Constitutional: WD/WN, vitals as above well developed and well nourished Eyes: PERRL, conjunctivae normal, anicteric sclerae ENMT: external ear and nose normal, oropharynx normal Neck: trachea midline, no thyromegaly Respiratory: normal respiratory effort, lungs clear to auscultation Cardiovascular: RRR, no murmur, no edema Rate/Rhythm: regular rate and regular rhythm Gastrointestinal (Abdomen): normal bowel sounds, soft, nontender, no hepatosplenomegaly no significant tenderness, all incision intact, no rednes s, no drainage, BEN 80 ml/day bloody, color Musculoskeletal: no cyanosis or clubbing, extremities motor strength 5/5 Skin: no rashes, warm and dry Neurologic: patellar DTR's 2+ bilat, sensation intact Psychiatric: Orientation: alert and oriented x 3 Results & Data Vital Signs (Past 12 Hours) Vital Signs Temp Pulse Resp BP Pulse Ox 02/11/20 07:29 36.9 C 73 16 118/78 92 Laboratory Results Abnormal lab results 02/11/20 Range/Units 06:08 Potassium 3.4 L (3.5-5.1) mmol/L Chloride 111 H (98-107) mmol/L Calcium 8.3 L (8.5-10.1) mg/dl Alkaline Phosphatase 42 L (45-117) U/L Total Protein 6.0 L (6.4-8.2) gm/dl Albumin 2.4 L (3.4-5.0) gm/dl Albumin/Globulin Ratio 0.7 L (0.9-2) (1) Cholecystitis with cholelithiasis Biliary obstruction: without biliary obstruction Cholecystitis acuity: acute Cholelithiasis location: gallbladder Qualified Code(s): K80.00 - Calculus of gallbladder with acute cholecystitis without obstruction
--- NOTE | 2020-02-11 12:31 | Discharge Summary (DS) ---
ADMITTING DIAGNOSES: Acute cholecystitis, cholelithiasis. OPERATION: Laparoscopic cholecystectomy by Dr. Christiano Malone. DETAILS OF DISCHARGE SUMMARY: This is a 49-year-old female who was admitted to the hospital for acute abdominal pain. The patient had a CT diagnosis of acute cholecystitis with cholelithiasis. The patient went to laparoscopic cholecystectomy and BEN drainage x1 by Dr. Christiano Malone on 02/09/2020 and the patient tolerated the procedure well, and after procedure, the patient was transferred to regular floor. The patient is doing fine and patient tolerated a regular diet. No nausea, no vomiting, no significant incision pain. PHYSICAL EXAMINATION: VITAL SIGNS: Temperature is 36.9, heart rate is 73, respiratory rate 16, blood pressure 118/78, O2 saturation 92% on room air. GENERAL: The patient is alert, awake, oriented x3. HEENT: Within normal limitation. NEUROLOGIC: Intact. NECK: No JVD. CHEST: Bilateral lung sounds clear. HEART: Normal S1, S2. No murmur. ABDOMEN: Soft, no significant tenderness. All incision intact. No redness. One BEN drainage still with 80 mL per day with some blood color. EXTREMITIES: No edema. PLAN: The patient wanted to go home today. I gave the patient postop care instructions. I recommended to leave the BEN drainage for about 1 week and followup in 1 week in my office and we will remove the BEN drainage. Also instructed the patient to record the BEN every day and monitor off, patient understands.
--- NOTE | 2020-02-22 05:48 | Coding Query ---
Your help is needed for correct coding of this account; the Operative Report documents, "some spillage of some stones"; please clarify if the patients spillage of some stones was: ( x) expected out of the surgery ( ) unexpected complication from the surgery ( )other please specify Thank you Eliana FUENTES
== END 2020-02-11 13:36 | disposition home or self-care (01) | DRG 419 ==
LOC: ED 10:23 → 3E 14:10